=== PATIENT | female | born 1955 | race Caucasian/White ===

== ENCOUNTER 2018-04-15 07:10 | Emergency (ER) | payer OTHER ==
[~2018-04-15] VITALS: Ht 154.9 cm; Wt 99.8 kg
[2018-04-15 07:10] VITALS: BP_SYST 120
[~2018-04-15 07:10] MED LIST: SYN75 PO
[2018-04-15] MEDS ORDERED: KETOROLAC TROMETHAMINE 60 MG/2 ML VIAL IM ONE (07:15)
--- NOTE | 2018-04-15 07:15 | NUR ---
Patient to ER bed 6 to gown for evaluation. Side rails up. Report RECEIVED FROM SERGIO CAMACHO
--- NOTE | 2018-04-15 07:16 | NUR ---
ER at bedside examining patient.
--- NOTE | 2018-04-15 07:30 | NUR ---
PT BIB AMBULANCE S/P FALL AT HOME. PT C/O RT KNEE PAIN 04/11. ABRASION, REDNESS, AND SWELLING NOTED. MY ONLY MED HX IS HYPOTHYROIDISM. VSS. A&OX4
--- NOTE | 2018-04-15 09:56 | NUR ---
Patient given written and verbal discharge instructions and verbalizes understanding. ER MD discussed with patient the results and treatment provided. Patient in stable condition. ID arm band removed. IV catheter removed intact and dressing applied, no active bleeding. Rx of Ibuprofen given. Patient educated on pain management and to follow up with PMD. Pain Scale 2/10 and tolerable. Opportunity for questions provided and answered. Medication side effect fact sheet provided.
[2018-04-15 09:58] VITALS: BP_SYST 121
== END 2018-04-15 09:56 | disposition home or self-care (01) ==
LOC: SED 07:10
DX: S80.01XA Contusion of right knee, initial encounter (principal); I25.2 Old myocardial infarction; Z88.6 Allergy status to analgesic agent; Z88.5 Allergy status to narcotic agent; Z88.8 Allergy status to other drugs, medicaments and biological substances; W01.0XXA Fall on same level from slipping, tripping and stumbling without subsequent striking against object, initial encounter; Y93.89 Activity, other specified; Y92.89 Other specified places as the place of occurrence of the external cause; Y99.8 Other external cause status
CPT/HCPCS: 29505; 73564; 73700; 99284; J1885